=== PATIENT | male | born 1960 | race Caucasian/White ===

== ENCOUNTER 2016-08-14 21:57 | Observation (INO) | payer OTHER ==
[~2016-08-14] VITALS: Ht 182.9 cm; Wt 163.8 kg
[2016-08-14] MEDS ORDERED: NITROGLYCERIN 2% OINT 1 GM UNIT DOSE PACKET TOP ONE (22:15)
[2016-08-14] MEDS ORDERED: ASPIRIN 81 MG CHEW (CHILDREN'S ASA) PO ONE (22:15)
[2016-08-14] MEDS ORDERED: meTOproloL SUCCINATE 50 MG (TOPROL XL) TAB PO SCH (22:15)
--- NOTE | 2016-08-14 22:15 | ED Chest Pain ---
General Stated Complaint: CHEST PAIN FINGER PAIN Source: patient Exam Limitations: no limitations History of Present Illness Time seen by provider: 22:13 Initial Comments Patient complains of anterior chest heaviness off and on all day. Pain radiates into his left fingers. He denies shortness of air or nausea. Risk factors include diabetes hypertension and obesity. There are no modifying factors. Allergies and Home Medications Allergies Uncoded Allergies: ASA (Allergy, Mild, NAUSEA, 08/14/16) Review of Systems Constitutional: no symptoms reported Respiratory: No Symptoms Reported Cardiovascular: Chest Pain, Edema Gastrointestinal: No Symptoms Reported Genitourinary: No Symptoms Reported All Other Systems Reviewed Negative Unless Noted: Yes Past Awaoyli-Zwoebd-Rnbzoh Hx Patient Social History Alcohol Use: Denies Use Recreational Drug Use: No Smoking Status: Never a Smoker Physical Exam Vital Signs Vital Sign - Last 12Hours 08/14/16 08/14/16 22:16 22:17 Temp 98.5 Pulse 73 Resp 16 B/P (MAP) 137/105 Pulse Ox 99 O2 Delivery Room Air Capillary Refill : General Appearance: No Apparent Distress, WD/WN, Obese HEENT: PERRL/EOMI, Pharynx Normal Neck: Supple Respiratory: Lungs Clear, Normal Breath Sounds Cardiovascular: Regular Rate, Rhythm, Other (3+ pitting pedal edema) Gastrointestinal: Non Tender, Soft Extremity: Normal Inspection Neurologic/Psychiatric: Alert, No Motor/Sensory Deficits Skin: Normal Color, Warm/Dry Progress/Results/Core Measures Results/Orders Lab Results Laboratory Tests Test 08/14/16 22:14 Range/Units White Blood Count 11.8 H 4.3-11.0 10^3/uL Red Blood Count 4.93 4.35-5.85 10^6/uL Hemoglobin 14.4 13.3-17.7 G/DL Hematocrit 43 40-54 % Mean Corpuscular Volume 88 80-99 FL Mean Corpuscular Hemoglobin 29 25-34 PG Mean Corpuscular Hemoglobin Concent 33 32-36 G/DL Red Cell Distribution Width 13.3 10.0-14.5 % Platelet Count 289 130-400 10^3/uL Mean Platelet Volume 9.2 7.4-10.4 FL Neutrophils (%) (Auto) 65 42-75 % Lymphocytes (%) (Auto) 23 12-44 % Monocytes (%) (Auto) 10 0-12 % Eosinophils (%) (Auto) 1 0-10 % Basophils (%) (Auto) 0 0-10 % Neutrophils # (Auto) 7.7 1.8-7.8 X 10^3 Lymphocytes # (Auto) 2.8 1.0-4.0 X 10^3 Monocytes # (Auto) 1.2 H 0.0-1.0 X 10^3 Eosinophils # (Auto) 0.2 0.0-0.3 10^3/uL Basophils # (Auto) 0.0 0.0-0.1 10^3/uL Prothrombin Time 13.2 12.2-14.7 SEC INR Comment 1.0 0.8-1.4 Activated Partial Thromboplast Time 31 24-35 SEC Sodium Level 137 135-145 MMOL/L Potassium Level 3.5 L 3.6-5.0 MMOL/L Chloride Level 100 98-107 MMOL/L Carbon Dioxide Level 28 21-32 MMOL/L Anion Gap 9 5-14 MMOL/L Blood Urea Nitrogen 19 H 7-18 MG/DL Creatinine 0.89 0.60-1.30 MG/DL Estimat Glomerular Filtration Rate > 60 BUN/Creatinine Ratio 21 Glucose Level 110 H 70-105 MG/DL Calcium Level 8.9 8.5-10.1 MG/DL Magnesium Level 2.1 1.8-2.4 MG/DL Total Bilirubin 0.5 0.1-1.0 MG/DL Aspartate Amino Transf (AST/SGOT) 20 5-34 U/L Alanine Aminotransferase (ALT/SGPT) 22 0-55 U/L Alkaline Phosphatase 76 40-136 U/L Troponin I < 0.30 <0.30 NG/ML B-Type Natriuretic Peptide < 10.0 <100.0 PG/ML Total Protein 7.1 6.4-8.2 G/DL Albumin 3.6 3.2-4.5 G/DL My Orders Orders - ROLANDO THORPE MD Cbc With Automated Diff (08/14/16 22:01) Magnesium (08/14/16 22:01) Chest 1 View, Ap/Pa Only (08/14/16 22:01) Ekg Tracing (08/14/16 22:) Cardiac Profile 1 (08/14/16 22:01) Comprehensive Metabolic Panel (08/14/16 22:) Protime With Inr (08/14/16 22:01) Partial Thromboplastin Time (08/14/16 22:01) O2 (08/14/16 22:01) Monitor-Rhythm Ecg Trace Only (08/14/16 22:01) Saline Lock/Iv-Start (08/14/16 22:01) BNP (08/14/16 22:10) Aspirin Chewable Tablet (Baby Aspirin Ch (08/14/16 22:15) Nitroglycerin Ointment (Nitrobid Ointme (08/14/16 22:15) Metoprolol Succinate (Xl) Tab (Toprol Xl (08/14/16 22:15) Ondansetron Injection (Zofran Injectio (08/14/16 22:33) Medications Given in ED Current Medications Medications Dose Ordered Sig/Rose Route Start Time Stop Time Status Last Admin Dose Admin Aspirin 324 mg ONCE ONCE PO 08/14/16 22:15 08/14/16 22:17 DC 08/14/16 22:31 324 MG Nitroglycerin 1 inch ONCE ONCE TOP 08/14/16 22:15 08/14/16 22:17 DC 08/14/16 22:31 1 INCH Ondansetron HCl 4 mg STK-MED ONCE .ROUTE 08/14/16 22:33 08/14/16 22:38 DC 08/14/16 22:39 4 MG Vital Signs/I&O Vital Sign - Last 12Hours 08/14/16 08/14/16 08/14/16 22:16 22:17 22:17 Temp 98.5 Pulse 73 Resp 16 B/P (MAP) 137/105 Pulse Ox 99 96 O2 Delivery Room Air Room Air Room Air Progress Note : Time: 23:03 Progress Note Patient states he feels a little better after nitroglycerin paste. He did have a flareup of pain that lasted a few minutes while in the ED. EKG during that time showed no changes. Troponin is negative. Admit for observation. ECG Initial ECG Rhythm: Normal Sinus Initial ECG Intervals: Normal Initial ECG Impression: Nonspecific Changes Departure Communication Time/Spoke to Admitting Phy: 23:03 Communication I spoke with Dr. Corcoran who agrees to admit. Dr. Contreras was also consulted and will see the patient the morning. Impression Impression: Primary Impression: Chest pain Disposition: ADMITTED INPATIENT Condition: Stable Decision to Admit Reason: Admit from ER (General) Decision to Admit/Date: Aug 14, 2016 Time/Decision to Admit Time: 22:50 ROLANDO THORPE MD Aug 14, 2016 22:15
[2016-08-14 22:21] LABS: BASOPHILS % (AUTO) 0 % (0-10); EOSINOPHILS # (AUTO) 0.2 10^3/uL (0.0-0.3); EOSINOPHILS % (AUTO) 1 % (0-10); LYMPHOCYTES # (AUTO) 2.8 X 10^3 (1.0-4.0); LYMPHOCYTES % (AUTO) 23 % (12-44); MEAN CORPUSCULAR HEMOGLOBIN 29 PG (25-34); MEAN CORPUSCULAR HGB CONC 33 G/DL (32-36); MEAN CORPUSCULAR VOLUME 88 FL (80-99); MEAN PLATELET VOLUME 9.2 FL (7.4-10.4); MONOCYTES # (AUTO) 1.2 X 10^3 (0.0-1.0); MONOCYTES % (AUTO) 10 % (0-12); NEUTROPHILS # (AUTO) 7.7 X 10^3 (1.8-7.8); NEUTROPHILS % (AUTO) 65 % (42-75); PLATELET COUNT 289 10^3/uL (130-400); RED BLOOD COUNT 4.93 10^6/uL (4.35-5.85); RED CELL DISTRIBUTION WIDTH 13.3 % (10.0-14.5); WHITE BLOOD COUNT 11.8 10^3/uL (4.3-11.0)
[2016-08-14 22:33] LABS: PROTHROMBIN TIME PATIENT 13.2 SEC (12.2-14.7)
[2016-08-14] MEDS ORDERED: ONDANSETRON 4 MG/2 ML (SDV) Z0FRAN ONE (22:33)
[2016-08-14 22:45] LABS: ALANINE AMINOTRANSFERASE 22 U/L (0-55); ALBUMIN 3.6 G/DL (3.2-4.5); ANION GAP 9 MMOL/L (5-14); ASPARTATE AMINO TRANSFERASE 20 U/L (5-34); BILIRUBIN,TOTAL 0.5 MG/DL (0.1-1.0); BLOOD UREA NITROGEN 19 MG/DL (7-18); BUN/CREATININE RATIO 21; CALCIUM 8.9 MG/DL (8.5-10.1); CARBON DIOXIDE 28 MMOL/L (21-32); CHLORIDE 100 MMOL/L (98-107); CREATININE SERUM 0.89 MG/DL (0.60-1.30); GFR ESTIMATED > 60; GLUCOSE 110 MG/DL (70-105); MAGNESIUM 2.1 MG/DL (1.8-2.4); POTASSIUM 3.5 MMOL/L (3.6-5.0); SODIUM 137 MMOL/L (135-145); TOTAL PROTEIN 7.1 G/DL (6.4-8.2)
[2016-08-14] MEDS ORDERED: LISI-552 PO (23:13)
[2016-08-14] MEDS ORDERED: HYDR25TA4 PO (23:13)
[2016-08-14] MEDS ORDERED: LOSA50TA36 PO (23:13)
[2016-08-14] MEDS ORDERED: METF500T4 PO (23:13)
[2016-08-14] MEDS ORDERED: MELO7.5T46 PO (23:13)
[2016-08-14] MEDS ORDERED: AMLO10TA2 PO (23:13)
[2016-08-14 23:30] VITALS: BP 125/80
[2016-08-14 23:45] VITALS: BP 118/55
[2016-08-15] VITALS (17 sets, daily range): BP systolic 101–144; BP diastolic 59–93
[2016-08-15] MEDS ORDERED: morphine INJ 4 MG/ML 1 ML (VIAL/SYRINGE) IV PRN (01:30)
[2016-08-15] MEDS: NITROGLYCERIN 2% OINT 1 GM UNIT DOSE PACKET TOP SCH ×3 (04:10→16:30)
[2016-08-15 04:53] LABS: CHOLESTEROL 149 MG/DL (< 200); DIRECT LDL 109 MG/DL (1-129); TRIGLYCERIDES 63 MG/DL (<150); VLDL CHOLESTEROL 13 MG/DL (5-40)
[2016-08-15] MEDS: inSUlin (REGULAR) HUMAN 1 UNIT/0.01 ML (CHARGE PER UNIT) SC SCH ×3 (06:26→16:30)
--- NOTE | 2016-08-15 07:14 | Diagnostic Imaging Report ---
INDICATION: Chest pain. DISCUSSION: Single portable upright view of the chest was obtained, no comparison. Exam is somewhat limited due to patient body habitus and portable technique. Normal heart size. No focal consolidation, pleural fluid, or pneumothorax. No osseous abnormality. IMPRESSION: 1. Negative portable chest. Dictated by: Dictated on workstation # [id number]
--- NOTE | 2016-08-15 08:00 | Pulmonary Consultation ---
History of Present Illness History of Present Illness Date of Consultation 08/15/16 07:57 Date of Admission History of Present Illness 56yo presented secondary to anterior chest heaviness with radiation into left fingers. Denies SOB Allergies and Home Medications Allergies Uncoded Allergies: ASA (Allergy, Mild, NAUSEA, 08/14/16) Home Medications Amlodipine Besylate 10 Mg Tablet, 10 MG PO DAILY, (Reported) Hydrochlorothiazide 25 Mg Tablet, 25 MG PO, (Reported) Lisinopril 20 Mg Tablet, 20 MG PO DAILY, (Reported) Losartan Potassium 50 Mg Tablet, 50 MG PO DAILY, (Reported) Meloxicam 7.5 Mg Tablet, 7.5 MG PO, (Reported) Metformin HCl 500 Mg Tablet, 500 MG PO, (Reported) Past Pbzccun-Ituwph-Hmtapx Hx Patient Social History Alcohol Use: Denies Use Recreational Drug Use: No Smoking Status: Never a Smoker Recent Foreign Travel: No Contact w/Someone Who Travel: No Recent Infectious Disease Expo: No Recent Hopitalizations: No Physical Abuse Screen: No Sexual Abuse: No Immunizations Up To Date Date of Pneumonia Vaccine: Apr 24, 2016 Seasonal Allergies Seasonal Allergies: No Surgeries HX Surgeries: Yes Respiratory Hx Respiratory Disorders: No Cardiovascular Hx Cardiac Disorders: Yes Cardiac Disorders: Hypertension Neurological Hx Neurological Disorders: No Reproductive System Hx Reproductive Disorders: No Sexually Transmitted Disease: No HIV/AIDS: No Genitourinary Hx Genitourinary Disorders: No Gastrointestinal Hx Gastrointestinal Disorders: No Gastrointestinal Disorders: Abdominal Hernia Musculoskeletal Hx Musculoskeletal Disorders: No Musculoskeletal Disorders: Chronic Back Pain, Fractures Endocrine Hx Endocrine Disorders: No (currently taking metformin) Cancer Hx Cancer: No Psychosocial Hx Psychiatric Problems: No Integumentary HX Skin/Integumentary Disorder: No Blood Transfusions Hx Blood Disorders: No Adverse Reaction to a Blood Tr: No Family Medical History Family Medial History: Patient reports no known family medical history. Exam Exam Vital Signs Date Time Temp Pulse Resp B/P (MAP) Pulse Ox O2 Delivery O2 Flow Rate FiO2 08/15/16 06:00 71 19 112/76 92 Nasal Cannula 2.00 08/15/16 05:00 71 12 123/81 93 Nasal Cannula 2.00 08/15/16 04:00 97.6 70 14 121/79 Nasal Cannula 2.00 08/15/16 03:30 67 12 108/78 Nasal Cannula 2.00 08/15/16 03:00 71 11 114/73 95 Nasal Cannula 2.00 08/15/16 02:30 76 10 102/69 87 Nasal Cannula 2.00 08/15/16 02:00 78 15 104/69 80 Room Air 08/15/16 01:30 77 14 104/69 91 Room Air 08/15/16 01:05 73 08/15/16 01:00 75 18 113/70 93 Room Air 08/15/16 00:45 70 10 101/78 93 Room Air 08/15/16 00:30 75 16 112/74 91 Room Air 08/15/16 00:29 76 08/15/16 00:15 76 18 111/71 90 Room Air 08/15/16 00:00 97 08/15/16 00:00 77 10 103/59 98 Room Air 08/14/16 23:45 78 13 118/55 95 Room Air 08/14/16 23:30 99.6 81 20 125/80 95 Room Air 08/14/16 23:14 77 16 97 08/14/16 22:17 98.5 73 16 137/105 96 Room Air 08/14/16 22:17 Room Air 08/14/16 22:16 99 Room Air I & O 08/15/16 07:00 Intake Total 0 ml Balance 0 ml General Appearance: No Apparent Distress, WD/WN, Obese HEENT: PERRL/EOMI, Pharynx Normal Neck: Supple Respiratory: Lungs Clear, Normal Breath Sounds Cardiovascular: Regular Rate, Rhythm, Other (3+ pitting pedal edema) Capillary Refill: Less Than 3 Seconds Extremity: Normal Inspection Neurologic/Psychiatric: Alert, No Motor/Sensory Deficits Skin: Normal Color, Warm/Dry Results Lab Laboratory Tests 08/14/16 22:14 Clinical Quality Measures AMI/AHF: ASA po Prior to arrival: No (allergy) DVT/VTE Risk/Contraindication: Risk Factor Score Per Nursin RFS Level Per Nursing on Admit: 3=High SHAHANA ESPINOZA DO Aug 15, 2016 08:00
[2016-08-15] MEDS ORDERED: ASPIRIN E.C. 325 MG (ECOTRIN) TABLET PO SCH (09:00)
--- NOTE | 2016-08-15 09:00 | Consultation-Cardiology ---
HPI-Cardiology Cardiology Consultation: Date of Consultation 08/15/16 Date of Admission 08-14-16 Attending Physician Reta Corcoran DO Admitting Physician Consulting Physician Sj Contreras MD HPI: Chief Complaint: Chest pain Mr. Bedolla is a 56 year old male admitted to ICU 5 from the ED. He reports he has been having episodes of sharp, mid-sternal chest pain without radiation off and on for several years. He states the episodes generally last for a few minutes and resolve on their own. However, the episode last night lasted longer so he came to the ED. He reports the episodes occur with or without r/t activity or emotional stress. The episode last night he felt last longer than usual and he had a brief episode of dizziness. No diaphoresis. No SOB. No n/v/d. No fever or chills. He has chronic intermittent LE edema which is unchanged. No c /o syncope or near syncope. 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 Review of Systems-Cardiology Review of Systems Constitutional: As described under HPI Eyes: No blurred vision, No drainage, No pain, No vision change Ears/Nose/Throat: No ear discharge, No ear pain, No nasal drainage, No ulcerations Respiratory: As described under HPI Cardiovascular: As described under HPI Gastrointestinal: constipation, No diarrhea, No nausea, No vomiting, No stool coloration changes Genitourinary: No dysuria, No discharge, No frequency, No hematuria, No urgency Skin: No rash, No skin related problems, No ulcerations Psychiatric/Neurological: No anxiety, No depression, No focal weakness, No seizure, No syncope Hematologic: No bleeding abnormalities All Other Systems Reviewed Negative Unless Noted: Yes RYS-Ejiprd-Fcmjwi Hx Patient Social History Alcohol Use: Denies Use Recreational Drug Use: No Smoking Status: Never a Smoker Recent Foreign Travel: No Recent Infectious Disease Expo: No Physical Abuse Screen: No Sexual Abuse: No Immunizations Up To Date Date of Pneumonia Vaccine: Apr 24, 2016 Past Medical History PMH As described under Assessment. Family Medical History Family Medical History: He reports he is adopted and has no knowledge of his family medical history. Family History: Patient reports no known family medical history. Allergies and Home Medications Allergies Uncoded Allergies: ASA (Allergy, Mild, NAUSEA, 08/14/16) Home Medications Amlodipine Besylate 10 Mg Tablet, 10 MG PO DAILY, (Reported) Hydrochlorothiazide 25 Mg Tablet, 25 MG PO DAILY, (Reported) Lisinopril 20 Mg Tablet, 20 MG PO DAILY, (Reported) Losartan Potassium 50 Mg Tablet, 50 MG PO DAILY, (Reported) Meloxicam 7.5 Mg Tablet, 7.5 MG PO, (Reported) Metformin HCl 500 Mg Tablet, 500 MG PO BID, (Reported) Physical Exam-Cardiology Physical Exam Vital Signs/I&O Vital Sign - Last 12Hours 08/15/16 08/15/16 08/15/16 08/15/16 00:29 00:30 00:45 01:00 Pulse 76 75 70 75 Resp 16 10 18 B/P (MAP) 112/74 101/78 113/70 Pulse Ox 91 93 93 O2 Delivery Room Air Room Air Room Air 08/15/16 08/15/16 08/15/16 08/15/16 01:05 01:30 02:00 02:30 Pulse 73 77 78 76 Resp 14 15 10 B/P (MAP) 104/69 104/69 102/69 Pulse Ox 91 80 87 O2 Delivery Room Air Room Air Nasal Cannula O2 Flow Rate 2.00 08/15/16 08/15/16 08/15/16 08/15/16 03:00 03:30 04:00 05:00 Temp 97.6 Pulse 71 67 70 71 Resp 11 12 14 12 B/P (MAP) 114/73 108/78 121/79 123/81 Pulse Ox 95 93 O2 Delivery Nasal Cannula Nasal Cannula Nasal Cannula Nasal Cannula O2 Flow Rate 2.00 2.00 2.00 2.00 08/15/16 08/15/16 08/15/16 06:00 07:00 08:37 Temp 98.0 Pulse 71 85 67 Resp 19 12 B/P (MAP) 112/76 102/68 Pulse Ox 92 96 O2 Delivery Nasal Cannula Room Air O2 Flow Rate 2.00 Capillary Refill : Less Than 3 Seconds Constitutional: appears stated age, No apparent distress, well-developed, well- nourished HEENT: PERRL, No discharge, hearing is well preserved, oral hygience is good, No ulceration, No xanthelasmas are seen Neck: No carotid bruit, carotid pulses are 2 + bilaterally Respiratory: No accessory muscle use, No respiratory distress, chest expansion is symmetric, chest is bilaterally symmetric, lungs clear to auscultation Cardiovascular: regular rate-rhythm, No JVD, S1 and S2 Gastrointestinal: No tender, soft, round, audible bowel sounds, No spleenomegaly Extremities: No clubbing, No cyanosis, significant edema (mild to mod non- pitting LE edema) Neurologic/Psychiatric: alert, oriented x 3, power is 5/5 both on sides Skin: No rash, No ulcerations Data Review Labs Laboratory Tests 08/14/16 22:14: White Blood Count 11.8H, Red Blood Count 4.93, Hemoglobin 14.4, Hematocrit 43, Mean Corpuscular Volume 88, Mean Corpuscular Hemoglobin 29, Mean Corpuscular Hemoglobin Concent 33, Red Cell Distribution Width 13.3, Platelet Count 289, Mean Platelet Volume 9.2, Neutrophils (%) (Auto) 65, Lymphocytes (%) (Auto) 23, Monocytes (%) (Auto) 10, Eosinophils (%) (Auto) 1, Basophils (%) (Auto) 0, Neutrophils # (Auto) 7.7, Lymphocytes # (Auto) 2.8, Monocytes # (Auto) 1.2H, Eosinophils # (Auto) 0.2, Basophils # (Auto) 0.0, Prothrombin Time 13.2, INR Comment 1.0, Activated Partial Thromboplast Time 31, Sodium Level 137, Potassium Level 3.5L, Chloride Level 100, Carbon Dioxide Level 28, Anion Gap 9, Blood Urea Nitrogen 19H, Creatinine 0.89, Estimat Glomerular Filtration Rate > 60, BUN/Creatinine Ratio 21, Glucose Level 110H, Calcium Level 8.9, Magnesium Level 2.1, Total Bilirubin 0.5, Aspartate Amino Transf (AST/SGOT) 20, Alanine Aminotransferase (ALT/SGPT) 22, Alkaline Phosphatase 76, Troponin I < 0.30, B- Type Natriuretic Peptide < 10.0, Total Protein 7.1, Albumin 3.6 08/15/16 03:44: Troponin I < 0.30, Triglycerides Level 63, Cholesterol Level 149, LDL Cholesterol Direct 109, VLDL Cholesterol 13, HDL Cholesterol 27L 08/15/16 06:19: Glucometer 110 Radiology NAME: NORMA BEDOLLA [facility] REC#: [id number] PT STATUS: ADM Jeyson : 1960 PHYSICIAN: ROLANDO THORPE MD ADMIT DATE: 08/14/16/ICU Draft Date of Exam:08/14/16 CHEST 1 VIEW, AP/PA ONLY INDICATION: Chest pain. DISCUSSION: Single portable upright view of the chest was obtained, no comparison. Exam is somewhat limited due to patient body habitus and portable technique. Normal heart size. No focal consolidation, pleural fluid, or pneumothorax. No osseous abnormality. IMPRESSION: 1. Negative portable chest. Dictated on workstation # [id number] Dict: 08/15/16 0710 Trans: 08/15/16 0714 [id number] Interpreted by: SRAVAN LOPEZ MD Electronically signed by: ECG Impression ECG Initial ECG Rhythm: Normal Sinus A/P-Cardiology Assessment/Admission Diagnosis Chest pain of undetermined etiology HTN Hypokalemia likely d/t chronic diuretic tx Umbilical hernia DM II - managed her his PCP H/O chronic back pain Obesity - BMI of 49 LDL 109 on lab of 08-15-16 H/O hemorrhoidectomy Discussion and Recomendations Non-specific chest pain of undetermined etiology. No evidence of ACS. D/t c/o and multiple risk factors as listed above advise further cardiac work up with MPI. He is agreeable. We will proceed later today. Echocardiogram to evaluate structure and LVEF. Continue home anti-hypertensives. D/C NTP. Risk factor modification advised. Efforts at weight loss advised. Hypokalemia likely d/t chronic diuretic use. Replace electrolytes. Further recommendations will be based on his hospital course. We would like to thank the Hospitalist service for this consult. This consult is being scribed by Gume Reese APRN on behalf of Dr. Contreras after discussion regarding plan of care. Clinical Quality Measures AMI/AHF: ASA po Prior to arrival: No (allergy) DVT/VTE Risk/Contraindication: Risk Factor Score Per Nursin RFS Level Per Nursing on Admit: 3=High Physician Assessment Physician Assessment Lungs: clear Cor: reg A&R * As documented in our note above * I had a detailed discussion with him regarding potential cardiac etiologies of chest discomfort and our diagnostic plan * Risk factor modification discussed and reviewed TERRELL REESE Aug 15, 2016 09:00 SJ CONTRERAS MD [facility] Aug 15, 2016 12:25
[2016-08-15] MEDS: CATHETER FLUSH 10 ML SYR IV PRN ×2 (11:49→13:14)
--- NOTE | 2016-08-15 12:02 | Short Stay Summary-Hospitalist ---
HPI History of Present Illness: HPI/Chief Complaint The patient is a 56-year-old white male who weighs 350+ pounds. 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 He reports that Monday evening while sitting quietly he experienced a fleeting sharp pain in his central chest. This lasted seconds at most. Curiously it also caused a sharp pain in the tip of his left fifth finger. A few hours later he experienced a similar occurrence. All of this occurred at rest. On Monday he began to have this at an increasing frequency. On Monday the duration of the pain continued to increase and he finally appeared at the emergency room. He reports that he has hypertension and sees a doctor in [facility]. In addition he is a borderline diabetic. He states that his cholesterol has been normal. He has never smoked. He is not able to give anything about family history as he was adopted. Source: patient Exam Limitations: no limitations Date Seen 08/15/16 Attending Physician Reta Corcoran DO PCP Referring Physician Date of Admission Aug 14, 2016 at 23:00 Home Medications & Allergies Home Medications Reviewed patient Home Medication Reconciliation Form Allergies Allergies Uncoded Allergies ASA ( Allergy, Mild, NAUSEA, 08/14/16) Past Rivomys-Tpncwg-Xzmerm Hx Patient Social History Alcohol Use: Denies Use Recreational Drug Use: No Smoking Status: Never a Smoker Physical Abuse Screen: No Sexual Abuse: No Recent Foreign Travel: No Contact w/other who traveled: No Recent Hopitalizations: No Recent Infectious Disease Expo: No Immunizations Up To Date Date of Pneumonia Vaccine: Apr 24, 2016 Seasonal Allergies Seasonal Allergies: No Surgeries HX Surgeries: Yes Respiratory Hx Respiratory Disorders: No Cardiovascular Hx Cardiovascular Disorders: Yes Cardiac Disorders: Hypertension Neurological Hx Neurological Disorders: No Reproductive System Hx Reproductive Disorders: No Sexually Transmitted Disease: No HIV/AIDS: No Genitourinary Hx Genitourinary Disorders: No Gastrointestinal Hx Gastrointestinal Disorders: No Gastrointestinal Disorders: Abdominal Hernia Musculoskeletal Hx Musculoskeletal Disorders: No Musculoskeletal Disorders: Chronic Back Pain, Fractures Endocrine Hx Endocrine Disorders: No (currently taking metformin) Cancer Hx Cancer: No Psychosocial Hx Psychiatric Problems: No Integumentary HX Skin/Integumentary Disorder: No Blood Transfusions Hx Blood Disorders: No Adverse Reaction to a Blood Tr: No Family Medical History Family Hx: Patient reports no known family medical history. Review of Systems Constitutional: see HPI EENTM: no symptoms reported Respiratory: no symptoms reported Cardiovascular: see HPI, chest pain Gastrointestinal: no symptoms reported Genitourinary: see HPI Musculoskeletal: no symptoms reported Skin: no symptoms reported Psychiatric/Neurological: No Symptoms Reported Physical Exam Physical Exam Vital Signs Vital Sign - Last 12Hours 08/14/16 08/14/16 08/15/16 22:16 22:17 02:30 Temp 98.5 Pulse 73 Resp 16 B/P (MAP) 137/105 Pulse Ox 99 O2 Delivery Room Air O2 Flow Rate 2.00 Capillary Refill : Less Than 3 Seconds General Appearance: Other (we have a pleasant white male who is morbidly obese and in no apparent distress) Eyes: Bilateral Eye Normal Inspection HEENT: Normal ENT Inspection Neck: Full Range of Motion, Normal Inspection, Non Tender, Supple, Carotid Bruit Respiratory: Chest Non Tender, Lungs Clear, Normal Breath Sounds, No Accessory Muscle Use, No Respiratory Distress Cardiovascular: Regular Rate, Rhythm, No Edema, No Gallop, No JVD, No Murmur, Normal Peripheral Pulses Gastrointestinal: Other (very large with a pannus) Extremity: Normal Capillary Refill, Normal Inspection, Normal Range of Motion, Non Tender, No Calf Tenderness, No Pedal Edema Neurologic/Psychiatric: Alert, Oriented x3, No Motor/Sensory Deficits, Normal Mood/Affect Skin: Normal Color, Warm/Dry Lymphatic: No Adenopathy Results Results/Procedures Lab Laboratory Tests 08/14/16 22:14 Short Stay Diagnosis Discharge Diagnosis-Short Stay Admission Diagnosis Atypical chest pain. 2.negative troponin series. 3.hypertension. 4.morbid obesity Conclusion Plan Await nuclear stress test. If negative dismiss Clinical Quality Measures AMI/AHF: ASA po Prior to arrival: No (allergy) DVT/VTE Risk/Contraindication: Risk Factor Score Per Nursin RFS Level Per Nursing on Admit: 3=High ELLIOTT READ MD Aug 15, 2016 12:02
[2016-08-15] MEDS ORDERED: REGADENOSON 0.4 MG/5 ML SYR (LEXISCAN) IV ONE ×2 (12:57→13:15)
[2016-08-15] MEDS ORDERED: ASPI-586 PO (17:44)
--- NOTE | 2016-08-16 09:35 | STRESS TEST ---
DATE OF SERVICE: 08/15/2016 RESTING AND POST REGADENOSON TECHNETIUM 99M TETROFOSMIN SPECT CT IMAGING: ORDERING PHYSICIAN: Madhavi Reese APRN PRIMARY PHYSICIAN: Dr. Corcoran. OTHER PHYSICIAN: Dr. Aldrich. CLINICAL DIAGNOSIS: Chest pain. Baseline images were carried out after injection of 10.64 mCi of Technetium 99m tetrofosmin. This was followed by 0.4 mg regadenoson and 31.6 mCi of technetium 99m tetrofosmin for stress imaging. The electrocardiogram showed sinus rhythm without evidence of ischemia at baseline. It did not change significantly with the regadenoson infusion. The patient tolerated the procedure well. Review of images at rest and following stress indicates diminished count uptake in the basal inferior wall, both at rest and following regadenoson infusion. This is likely due to diaphragmatic attenuation. Gated images show normal global left ventricular systolic function with normal regional wall motion, including the basal inferior wall. Left ventricular ejection fraction is calculated to be 75%. Left ventricular end diastolic volume is 75 mL. TID is absent (1.13). CONCLUSIONS: 1. No evidence of any significant myocardial ischemia or infarction on this study. 2. Normal regional wall motion. 3. Normal global left ventricular systolic function with a calculated ejection fraction of 75%. 4. Normal left ventricular cavity size. Job ID: [id number] DocumentID: [id number] Dictated Date: 08/15/2016 16:31:49 Lime Boiler Date: 08/15/2016 21:58:19 Dictated By: KATY ALDRICH MD, MA, FACP, FACC,
--- NOTE | 2016-08-17 11:09 | ECHOCARDIOGRAPHY REPORT ---
DATE OF SERVICE: 08/15/2016 ORDER PHYSICIAN: Madhavi Reese APRN. PRIMARY CARE PHYSICIAN: Dr. Corcoran. OTHER PHYSICIAN: Dr. Aldrich. CLINICAL DIAGNOSIS: Chest discomfort. MEASUREMENTS: 1. Aortic root, 3.8. 2. Left atrium, 4.1. 3. LV diameter, diastolic, 5.2. 4. IVS thickness, diastolic, 0.9. 5. LVPW thickness, diastolic, 1. DESCRIPTION: This is a technically difficult study. Global left ventricular systolic function appears well preserved. The study is not suitable for wall motion analysis. The left ventricular ejection fraction is approximately 65%. Aortic, mitral, and tricuspid valve leaflets, to the extent visualized, have good leaflet excursion. Doppler imaging did not indicate significant valvular regurgitation or stenosis. Subcostal views are difficulty. Inferior vena cava appears to be mildly dilated but does seem to have inspiratory collapse. CONCLUSIONS: 1. Technically difficult study. 2. Normal global left ventricular systolic function with ejection fraction approximately 65%. 3. The study is not suitable for wall motion analysis. 4. No evidence of significant valvular regurgitation or stenosis on this study. Job ID: [id number] DocumentID: [id number] Dictated Date: 08/16/2016 16:48:51 [employer] Consultant Date: 08/17/2016 08:44:15 Dictated By: KATY ALDRICH MD, MA, FACP, FACC,
== END 2016-08-15 17:33 | disposition home or self-care (01) ==
LOC: ER 22:00 → ICU 23:00 → UNDOADMOB 23:00 → ICU 23:30
PROVIDERS: ADMIT Internal Medicine; ATTEND Internal Medicine
DX: R07.89 Other chest pain (principal); I10 Essential (primary) hypertension; E11.9 Type 2 diabetes mellitus without complications; Z79.84 Long term (current) use of oral hypoglycemic drugs; E87.6 Hypokalemia; M54.9 Dorsalgia, unspecified; E66.01 Morbid (severe) obesity due to excess calories; Z68.42 Body mass index [BMI] 45.0-49.9, adult
CPT/HCPCS: 36415; 71010; 78452; 80053; 80061; 82962; 83735; 83880; 84484; 85025; 85610; 85730; 93005; 93017; 93041; 93306; 96374; G0378

== ENCOUNTER → 2020-07-15 | Outpatient (CLI) | payer OTHER ==
[~2020-07-15] MED LIST: AMLO-251 PO; ASPI-586 PO; HYDR25TA4 PO; LISI20TA26 PO; LOSA50TA63 PO; MELO7.5T46 PO; METF-397 PO
== END ==
LOC: WOUNDCARE 08:50
PROVIDERS: ATTEND Surgery
DX: L89.616 Pressure-induced deep tissue damage of right heel (principal); I70.234 Atherosclerosis of native arteries of right leg with ulceration of heel and midfoot; E11.621 Type 2 diabetes mellitus with foot ulcer; E66.01 Morbid (severe) obesity due to excess calories; I50.9 Heart failure, unspecified
CPT/HCPCS: 99203

== ENCOUNTER → 2020-07-27 | Outpatient (CLI) | payer OTHER | LOC: WOUNDCARE 15:26 | PROVIDERS: ATTEND Surgery | DX: L89.616 Pressure-induced deep tissue damage of right heel (principal); I70.234 Atherosclerosis of native arteries of right leg with ulceration of heel and midfoot; E11.621 Type 2 diabetes mellitus with foot ulcer; E66.01 Morbid (severe) obesity due to excess calories; I50.9 Heart failure, unspecified; Z68.44 Body mass index [BMI] 60.0-69.9, adult | CPT/HCPCS: 99212 ==